=== PATIENT | male | born 1980 | race Caucasian/White ===

== ENCOUNTER 2018-10-26 10:48 | Day surgery (SDC) | END 2018-10-26 16:40 | disposition home or self-care (01) ==

== ENCOUNTER 2019-07-12 14:12 | Day surgery (SDC) | payer OTHER ==
[~2019-07-12] VITALS: Ht 165.1 cm; Wt 89.4 kg
[2019-07-12] VITALS (18 sets, daily range): BP systolic 106–121; BP diastolic 64–75; PULSE 58–76; RESP 15–24; Ht 165.1 cm; Wt 89.4 kg
[2019-07-12] MEDS ORDERED: SUCCINYLCHOLINE CHLORIDE 100 MG/5 ML SYG IV ONE (16:55)
[2019-07-12] MEDS ORDERED: ROCURONIUM 50 MG INJ ONE (16:55)
[2019-07-12] MEDS ORDERED: PROPOFOL 20 ML ONE (16:55)
[2019-07-12] MEDS ORDERED: LIDOCAINE 2% (SDV) 5 ML INJ ONE (16:55)
[2019-07-12] MEDS ORDERED: SEVOFLURANE 15 MIN ONE (16:55)
[2019-07-12] MEDS ORDERED: FENTAnyl 50 MCG/ML VIAL ONE (16:56)
[2019-07-12] MEDS ORDERED: MIDAZOLAM 1 MG/ML 2 ML INJ ONE (16:56)
[2019-07-12] MEDS ORDERED: ONDANSETRON 4 MG INJ ONE (16:56)
[2019-07-12] MEDS ORDERED: FENTAnyl 50 MCG/ML VIAL IV PRN (17:00)
[2019-07-12] MEDS ORDERED: hydrALAzine 20 MG INJ IV PRN (17:00)
[2019-07-12] MEDS ORDERED: MIDAZOLAM 1 MG/ML 2 ML INJ IV PRN (17:00)
[2019-07-12] MEDS ORDERED: DIPHENHYDRAMINE 50 MG INJ IV PRN (17:00)
[2019-07-12] MEDS ORDERED: OXYCODONE/ACETAMINOPHEN (5/325) TAB PO PRN (17:00)
[2019-07-12] MEDS ORDERED: ONDANSETRON 4 MG INJ IV PRN (17:00)
[2019-07-12] MEDS ORDERED: HYDROmorphONE 1 MG/5 ML IV SYRINGE IV PRN ×2 (17:00)
[2019-07-12] MEDS ORDERED: EPHEDrine 25 MG/5 ML SYG IV PRN (17:00)
[2019-07-12] MEDS ORDERED: LABETALOL HCL 20MG INJ IV PRN (17:00)
[2019-07-12] MEDS ORDERED: MEPERIDINE 25 MG INJ IV PRN (17:00)
[2019-07-12] MEDS ORDERED: BUPIVACAINE 0.25% (MPF) 30 ML INJ ONE (17:06)
[2019-07-12] MEDS ORDERED: POLYMYXIN/BACITRACIN 1L IRRIG IRR ONE (17:10)
[2019-07-12] MEDS ORDERED: POLYMYXIN/BACITRACIN 1L IRRIG ONE (17:57)
== END 2019-07-12 19:14 | disposition home or self-care (01) ==
LOC: SDS 14:12
PROVIDERS: ATTEND Orthopaedic Surgery Hand Surgery
DX: G56.02 Carpal tunnel syndrome, left upper limb (principal)
CPT/HCPCS: J2250; J2405; J3010